=== PATIENT | male | born 1955 | race Two or more races ===

== ENCOUNTER 2024-10-31 07:39 | Emergency (ER) | payer OTHER ==
[~2024-10-31] VITALS: Ht 167.6 cm; Wt 81.6 kg
[2024-10-31 07:46] VITALS: O2SAT 97
[2024-10-31] MEDS ORDERED: CEFTRIAXONE SODIUM 1,000 MG VIAL IM STA (08:37)
[2024-10-31] MEDS ORDERED: FLUCONAZOLE 150 MG TABLET PO STA (08:41)
[2024-10-31] MEDS ORDERED: LAMISIL AT12 G1 TOP (09:14)
[2024-10-31] MEDS ORDERED: FLUCONAZOLE150 MG PO (09:14)
[2024-10-31] MEDS ORDERED: CEFTRIAXONE SODIUM 1,000 MG VIAL ONE (09:15)
[2024-10-31] MEDS ORDERED: LIDOCAINE HCL 1% 10ML VIAL ONE (09:16)
[2024-10-31 09:45] LABS: BASO % 0.5 % (0.1-1.2); EOS % 1.7 % (0.7-7.0); HEMATOCRIT 43.7 % (40.1-51.0); HEMOGLOBIN 14.6 g/dL (13.7-17.5); LYMPH # 1.49 (1.18-3.74); LYMPH % 25.3 % (19.3-53.1); MEAN CORPUSCULAR HEMOGLOBIN 29.4 pg (25.6-32.2); MONO # 0.51 (0.24-0.82); MONO % 8.6 % (4.7-12.5); NEUT # 3.75 (1.56-6.13); NEUT % 63.6 % (34.0-71.1); PLATELET COUNT 261 K/uL (163-369); RED BLOOD COUNT 4.96 M/uL (4.63-6.08); RED CELL DISTRIBUTION WIDTH 13.8 % (11.6-14.4)
[2024-10-31 10:08] LABS: BILIRUBIN TOTAL 1.4 mg/dL (0.3-1.2); CALCIUM 9.7 mg/dL (8.5-10.1); CREATININE SERUM 0.98 mg/dL (0.70-1.30); GFR 75.83; GLOBULINA 4.3 G/DL (2.4-3.5); TOTAL PROTEIN 8.3 gm/dL (6.4-8.2)
[2024-10-31 12:44] VITALS: BP 161/91
== END 2024-10-31 12:45 | disposition home or self-care (01) ==
LOC: ER 08:11
PROVIDERS: General Practice
DX: B48.8 Other specified mycoses (principal); B35.4 Tinea corporis
CPT/HCPCS: 36415; 96372; 99282; J0696